=== PATIENT | female | born 1930 | race Caucasian/White ===

== ENCOUNTER 2018-05-27 12:10 | Outpatient (CLI) | payer MEDICARE, OTHER ==
[2018-05-27 17:44] LABS: BASOPHILS # (AUTO) 0.1 10^3/uL (0.0-0.1); BASOPHILS % (AUTO) 1.9 %; EOSINOPHILS # (AUTO) 0.1 10^3/uL (0.0-0.7); EOSINOPHILS % (AUTO) 1.5 %; HGB - HEMOGLOBIN 12.1 g/dL (12.0-16.0); LYMPHOCYTES # (AUTO) 1.3 10^3/uL (1.5-3.5); MEAN CORPUSCULAR HEMOGLOBIN 31.2 pg (27.0-31.0); MEAN CORPUSCULAR HGB CONC 32.8 g/dL (32.0-36.0); MEAN CORPUSCULAR VOLUME 95.2 fL (81.0-99.0); MONOCYTES # (AUTO) 0.4 10^3/uL (0.0-1.0); MONOCYTES % (AUTO) 6.5 %; NEUTROPHILS # (AUTO) 3.9 10^3/uL (1.5-6.6); NEUTROPHILS % (AUTO) 67.1 %; PLT - PLATELET COUNT 227 10^3/uL (130-450); RED BLOOD COUNT 3.88 10^6/uL (4.20-5.40); RED CELL DISTRIBUTION WIDTH 13.1 % (12.0-15.0); WHITE BLOOD COUNT 5.8 x10^3/uL (4.8-10.8)
[2018-05-27 18:15] LABS: ALBUMIN 3.9 g/dL (3.2-5.5); ALBUMIN/GLOBULIN RATIO 1.4 (1.0-2.2); BILIRUBIN,TOTAL 0.6 mg/dL (0.2-1.0); CALCIUM 9.1 mg/dL (8.5-10.3); CREATININE 0.9 mg/dL (0.4-1.0); TOTAL PROTEIN 6.6 g/dL (6.7-8.2)
== END 2018-05-27 23:59 | disposition home or self-care (01) ==
LOC: LAB.F 12:10
PROVIDERS: ATTEND Nurse Practitioner Family
DX: I10 Essential (primary) hypertension (principal)
CPT/HCPCS: 36415; 80053; 84443; 85025

== ENCOUNTER 2018-06-13 12:49 | Outpatient (CLI) | payer MEDICARE, OTHER | END 2018-06-13 23:59 | disposition home or self-care (01) | LOC: LAB.R 12:49 | PROVIDERS: ATTEND Nurse Practitioner Family | DX: D64.9 Anemia, unspecified (principal) | CPT/HCPCS: 82270 ==

== ENCOUNTER 2018-06-27 11:39 | Outpatient (CLI) | payer MEDICARE, OTHER ==
[2018-06-27 18:16] LABS: CALCIUM 8.9 mg/dL (8.5-10.3); CREATININE 0.8 mg/dL (0.4-1.0)
== END 2018-06-27 11:40 | disposition home or self-care (01) ==
LOC: LAB.F 11:39
PROVIDERS: ATTEND Nurse Practitioner Family
DX: R79.9 Abnormal finding of blood chemistry, unspecified (principal)
CPT/HCPCS: 36415; 80048

== ENCOUNTER 2018-08-08 11:27 | Outpatient (CLI) | payer MEDICARE, OTHER ==
[2018-08-08 17:27] LABS: MEAN CORPUSCULAR HEMOGLOBIN 30.5 pg (27.0-31.0); MEAN CORPUSCULAR HGB CONC 32.4 g/dL (32.0-36.0); MEAN CORPUSCULAR VOLUME 94.2 fL (81.0-99.0); MEAN PLATELET VOLUME 9.1 fL (7.9-10.8); RED BLOOD COUNT 3.94 10^6/uL (4.20-5.40); RED CELL DISTRIBUTION WIDTH 12.8 % (12.0-15.0); WHITE BLOOD COUNT 6.8 x10^3/uL (4.8-10.8)
[2018-08-08 17:37] LABS: CREATININE,URINE 119.4 mg/dL; PROTEIN/CREATININE RATIO,URINE 0.1 (<=0.2)
== END 2018-08-08 11:28 | disposition home or self-care (01) ==
LOC: LAB.F 11:27
PROVIDERS: ATTEND Internal Medicine Nephrology
DX: D70.9 Neutropenia, unspecified (principal); D63.1 Anemia in chronic kidney disease; R80.9 Proteinuria, unspecified
CPT/HCPCS: 36415; 82570; 84156; 85027

== ENCOUNTER 2018-09-19 13:14 | Outpatient (CLI) | payer MEDICARE, OTHER ==
--- NOTE | 2018-09-23 10:49 | Mammography Report ---
Reason: SCREENING MAMMOGRAM FOR BREAST CANCER Procedure Date: 09/19/2018 Accession Number: [id number] / [id number] Procedure: STEFF - Screening Mammo w/Matthew CPT Code: FULL RESULT: EXAM: Screening Mammo w/Matthew DATE: 09/19/2018 3:36 PM CLINICAL HISTORY: Screening encounter. History of colon cancer and endometrial cancer. TECHNIQUE: (B) - Bilateral CC and MLO views were obtained. COMPARISON: 10/09/2016 through 05/27/2013. PARENCHYMAL PATTERN: (A) - The breast(s) demonstrate(s) scattered fibroglandular densities. FINDINGS: There are coarse typically benign calcifications. There are no suspicious masses, calcifications, or areas of distortion. IMPRESSION: Benign findings. BI-RADS category 2. RECOMMENDATION: (ANNUAL) - Recommend routine annual screening mammography. BI-RADS CATEGORY: (2) - Benign Findings. STANDARD QUALIFYING STATEMENTS: 1. This examination was not reviewed with the aid of Computer-Aided Detection (CAD). 2. A negative or benign imaging report should not preclude biopsy if clinically suspicious findings are present. 3. Dense breasts may obscure an underlying neoplasm. 4. This examination was reviewed with the aid of 3D breast imaging (tomosynthesis).
== END 2018-09-19 13:15 | disposition home or self-care (01) ==
LOC: DI 13:14
PROVIDERS: ATTEND Nurse Practitioner Family
DX: Z12.31 Encounter for screening mammogram for malignant neoplasm of breast (principal)
CPT/HCPCS: 77063; 77067

== ENCOUNTER 2019-01-07 10:57 | Outpatient (CLI) | payer MEDICARE, OTHER ==
--- NOTE | 2019-01-07 17:47 | XRAY Report ---
Reason: COPD Procedure Date: 01/07/2019 Accession Number: [id number] / [id number] Procedure: XRS - Chest 2 View X-Ray CPT Code: 76707 FULL RESULT: EXAM: CHEST RADIOGRAPHY EXAM DATE: 01/07/2019 11:07 AM. CLINICAL HISTORY: COPD. Short of breath COMPARISON: None. TECHNIQUE: 2 views. FINDINGS: Lungs/Pleura: No focal opacities evident. No pleural effusion. No pneumothorax. Normal volumes. Mediastinum: Heart and mediastinal contours are unremarkable. Other: Degenerative change in the spine with mildly accentuated thoracic kyphosis and thoracic levoscoliosis. Tortuous aorta. IMPRESSION: Clear lungs. No acute findings. [facility]
== END 2019-01-07 10:58 | disposition home or self-care (01) ==
LOC: DI.S 10:57
PROVIDERS: ATTEND Registered Nurse
DX: J44.9 Chronic obstructive pulmonary disease, unspecified (principal)
CPT/HCPCS: 71046

== ENCOUNTER 2019-06-08 04:15 | Outpatient (CLI) | payer MEDICARE | END 2019-06-08 23:59 | LOC: LAB.R 04:15 | PROVIDERS: ATTEND Family Medicine | DX: R19.7 Diarrhea, unspecified (principal) | CPT/HCPCS: 87177; 87209 ==

== ENCOUNTER 2019-06-09 09:15 | Outpatient (CLI) | payer MEDICARE | END 2019-06-09 23:59 | LOC: LAB.R 09:15 | PROVIDERS: ATTEND Family Medicine | DX: R19.7 Diarrhea, unspecified (principal) | CPT/HCPCS: 87177; 87209 ==

== ENCOUNTER 2019-06-12 08:01 | Outpatient (CLI) | payer MEDICARE, OTHER ==
[2019-06-12 10:24] LABS: BILIRUBIN,URINE NEGATIVE (NEGATIVE); GLUCOSE, URINE (UA) >=1000 mg/dL (NEGATIVE); KETONES,URINE (UA) NEGATIVE (NEGATIVE); LEUKOCYTE ESTERASE, URINE NEGATIVE (NEGATIVE); NITRITE,URINE NEGATIVE (NEGATIVE); OCCULT BLOOD,URINE NEGATIVE (NEGATIVE); PH,URINE 5.5 PH (5.0-7.5); PROTEIN,URINE NEGATIVE (NEGATIVE); UROBILINOGEN,URINE 0.2 (NORMAL) E.U./dL (NORMAL)
[2019-06-12 10:32] LABS: CLARITY,URINE CLEAR (CLEAR)
== END 2019-06-12 08:02 | disposition home or self-care (01) ==
LOC: LAB.S 08:01
PROVIDERS: ATTEND Family Medicine
DX: R19.7 Diarrhea, unspecified (principal)
CPT/HCPCS: 81001; 81003; 81599; 87045; 87046; 87086; 87177; 87209; 87493